=== PATIENT | female | born 1940 | race Caucasian/White ===

== ENCOUNTER 2023-06-27 13:25 | Emergency (ER) | payer MEDICARE, OTHER ==
[2023-06-27] MEDS ORDERED: Naloxone 0.4 MG/ML SDV IVPUSH PRN (13:50)
[2023-06-27 14:02] LABS: BASOPHILS ABSOLUTE AUTO 0.05 K/uL (0.00-0.10); BASOPHILS PERCENT AUTO 0.7 % (0.1-1.3); EOSINOPHILS ABSOLUTE AUTO 0.12 K/uL (0.00-0.40); EOSINOPHILS PERCENT AUTO 1.6 % (0.0-5.4); IMMATURE GRAN ABSOLUTE AUTO 0.04 K/uL (0.00-0.23); IMMATURE GRAN PERCENT AUTO 0.5 % (0.0-0.7); LYMPHOCYTES ABSOLUTE AUTO 1.31 K/uL (0.8-3.3); LYMPHOCYTES PERCENT AUTO 17.2 % (11.4-47.7); MEAN CORPUSCULAR HEMOGLOBIN 32.2 pg (31.6-35.5); MEAN CORPUSCULAR HGB CONC 34.1 g/dL (31.6-35.5); MEAN CORPUSCULAR VOLUME 94.3 fL (81.4-99.0); MONOCYTES ABSOLUTE AUTO 0.34 K/uL (0.20-0.90); MONOCYTES PERCENT AUTO 4.5 % (3.3-12.6); NEUTROPHILS ABSOLUTE AUTO 5.76 K/uL (1.0-7.6); NEUTROPHILS PERCENT AUTO 75.5 % (40.0-78.1); PLATELET COUNT,PLT 231 K/uL (130-375); RED BLOOD CELL COUNT 4.35 M/uL (3.77-5.24); WHITE BLOOD CELL COUNT,WBC 7.6 K/uL (3.2-11.0)
[2023-06-27 14:26] LABS: A/G RATIO 1.2 (1.2-2.2); ALANINE AMINOTRANSFERASE,ALT 22 U/L (12-78); ALBUMIN 4.3 g/dL (3.4-5.0); ALKALINE PHOSPHATASE 89 U/L (46-116); ASPARTATE AMNIOTRANSFERASE,AST 16 U/L (15-37); BILIRUBIN TOTAL 0.9 mg/dL (0.2-1.0); BLOOD UREA NITROGEN,BUN 30 mg/dL (7-18); CALCIUM 10.7 mg/dL (8.5-10.1); CARBON DIOXIDE,CO2 21 mmol/L (21-32); CHLORIDE,CL 102 mmol/L (100-108); CREATININE 1.3 mg/dL (0.6-1.0); EST CRCL DRUG DOSING (CG) 26.39 mL/min; ESTIMATED GFR 41 mL/min (>60); GLUCOSE RANDOM 161 mg/dL (74-106); POTASSIUM,K 5.3 mmol/L (3.6-5.2); PROTEIN TOTAL,TP 7.9 g/dL (6.4-8.2); SODIUM,NA 135 mmol/L (140-148)
[2023-06-27 14:28] LABS: ANION GAP 17.3 mmol/L (5.0-14.0)
[2023-06-27] MEDS: fentaNYL 50 MCG/ML SDV IVPUSH ONE (14:51)
[2023-06-27] MEDS: Ondansetron 4 MG/2 ML SDV IVPUSH ONE (14:51)
[2023-06-27] MEDS: Sodium Chloride 0.9% 1,000 ML IV SCH (14:52)
[2023-06-27 15:02] VITALS: BP 155/95; PULSE 97
[2023-06-27 15:10] LABS: APPEARANCE,URINE CLEAR (CLEAR); BILIRUBIN,URINE NEGATIVE (NEGATIVE); COLOR,URINE YELLOW (YELLOW); GLUCOSE,URINE NEGATIVE (NEGATIVE); KETONES,URINE NEGATIVE (NEGATIVE); LEUKOCYTE ESTERASE,URINE NEGATIVE (NEGATIVE); NITRITE,URINE NEGATIVE (NEGATIVE); OCCULT BLOOD,URINE NEGATIVE (NEGATIVE); PH,URINE 5.5 (5.0-8.0); PROTEIN,URINE NEGATIVE (NEGATIVE); UROBILINOGEN,URINE 0.2 EU/dL (0.2-1.0)
[2023-06-27 15:16] LABS: AMORPHOUS SEDIMENT,URINE NOT SEEN; BACTERIA,URINE MODERATE; EPITHELIAL CELLS,URINE FEW; MUCUS,URINE NOT SEEN; RBC,URINE NOT SEEN (0-5); WBC,URINE 0-5 (0-5)
== END 2023-06-27 16:20 | disposition home or self-care (01) ==
LOC: JP.ED 13:25
DX: I20.9 Angina pectoris, unspecified (principal); I10 Essential (primary) hypertension; I25.10 Atherosclerotic heart disease of native coronary artery without angina pectoris; E78.00 Pure hypercholesterolemia, unspecified; Z79.82 Long term (current) use of aspirin; Z79.899 Other long term (current) drug therapy
CPT/HCPCS: 36415; 74177; 80053; 81001; 83605; 83690; 84484; 85025; 96361; 96374; 96375; 99284; J2405; J3010; J7030

== ENCOUNTER 2023-06-29 16:25 | Inpatient (IN) | payer MEDICARE ==
[2023-06-29] MEDS: Ondansetron 4 MG/2 ML SDV IVPUSH ONE (17:39)
[2023-06-29] MEDS: Sodium Chloride 0.9% 1,000 ML IV SCH ×2 (17:39→22:52)
[2023-06-29 18:49] LABS: BILIRUBIN,URINE NEGATIVE (NEGATIVE); COLOR,URINE YELLOW (YELLOW); GLUCOSE,URINE NEGATIVE (NEGATIVE); KETONES,URINE NEGATIVE (NEGATIVE); LEUKOCYTE ESTERASE,URINE NEGATIVE (NEGATIVE); NITRITE,URINE NEGATIVE (NEGATIVE); OCCULT BLOOD,URINE TRACE-INTACT (NEGATIVE); PH,URINE 6.5 (5.0-8.0); PROTEIN,URINE 100 mg/dL (NEGATIVE); UROBILINOGEN,URINE 0.2 EU/dL (0.2-1.0)
[2023-06-29 18:59] LABS: AMORPHOUS SEDIMENT,URINE NOT SEEN; APPEARANCE,URINE SLIGHTLY CLOUDY (CLEAR); BACTERIA,URINE MODERATE; EPITHELIAL CELLS,URINE MODERATE; MUCUS,URINE FEW; RBC,URINE 0-5 (0-5); WBC,URINE 0-5 (0-5)
[2023-06-29] MEDS: Simethicone 125 MG Tab.Chew PO PRN (19:49)
[2023-06-29 20:37] LABS: BASOPHILS ABSOLUTE AUTO 0.03 K/uL (0.00-0.10); BASOPHILS PERCENT AUTO 0.4 % (0.1-1.3); EOSINOPHILS ABSOLUTE AUTO 0.02 K/uL (0.00-0.40); EOSINOPHILS PERCENT AUTO 0.2 % (0.0-5.4); HEMATOCRIT 36.6 % (34.3-46.0); HEMOGLOBIN 12.7 g/dL (11.2-15.5); IMMATURE GRAN ABSOLUTE AUTO 0.04 K/uL (0.00-0.23); IMMATURE GRAN PERCENT AUTO 0.5 % (0.0-0.7); LYMPHOCYTES ABSOLUTE AUTO 1.43 K/uL (0.8-3.3); LYMPHOCYTES PERCENT AUTO 16.8 % (11.4-47.7); MEAN CORPUSCULAR HEMOGLOBIN 32.2 pg (31.6-35.5); MEAN CORPUSCULAR HGB CONC 34.7 g/dL (31.6-35.5); MEAN CORPUSCULAR VOLUME 92.9 fL (81.4-99.0); MONOCYTES ABSOLUTE AUTO 0.39 K/uL (0.20-0.90); MONOCYTES PERCENT AUTO 4.6 % (3.3-12.6); NEUTROPHILS ABSOLUTE AUTO 6.61 K/uL (1.0-7.6); NEUTROPHILS PERCENT AUTO 77.5 % (40.0-78.1); PLATELET COUNT,PLT 245 K/uL (130-375); RED BLOOD CELL COUNT 3.94 M/uL (3.77-5.24); WHITE BLOOD CELL COUNT,WBC 8.5 K/uL (3.2-11.0)
[2023-06-29 20:51] LABS: A/G RATIO 1.3 (1.2-2.2); ALANINE AMINOTRANSFERASE,ALT 21 U/L (12-78); ALBUMIN 4.3 g/dL (3.4-5.0); ALKALINE PHOSPHATASE 79 U/L (46-116); AMYLASE 53 U/L (25-115); ASPARTATE AMNIOTRANSFERASE,AST 19 U/L (15-37); BLOOD UREA NITROGEN,BUN 22 mg/dL (7-18); CALCIUM 10.6 mg/dL (8.5-10.1); CARBON DIOXIDE,CO2 24 mmol/L (21-32); CHLORIDE,CL 101 mmol/L (100-108); CREATININE 1.4 mg/dL (0.6-1.0); ESTIMATED GFR 38 mL/min (>60); GLUCOSE RANDOM 172 mg/dL (74-106); MAGNESIUM 1.3 mg/dL (1.8-2.4); POTASSIUM,K 4.3 mmol/L (3.6-5.2); PROTEIN TOTAL,TP 7.6 g/dL (6.4-8.2); SODIUM,NA 136 mmol/L (140-148)
[2023-06-29 20:52] LABS: ANION GAP 15.3 mmol/L (5.0-14.0)
[2023-06-29 21:31] LABS: CORONAVIRUS COVID-19 NAA NEGATIVE (NEGATIVE); INFLUENZA A NAA NEGATIVE (NEGATIVE); INFLUENZA B NAA NEGATIVE (NEGATIVE); RESPIRATORY SYNCYTIAL VIR NAA NEGATIVE (NEGATIVE)
[2023-06-29] MEDS: Dexamethasone 4 MG/ML SDV IVPUSH ONE (21:35)
[2023-06-29] MEDS ORDERED: LORazepam 1 MG Tab PO PRN (21:54)
[2023-06-29] MEDS ORDERED: Morphine 2 MG/ML SYRINGE IVPUSH PRN (21:54)
[2023-06-29] MEDS ORDERED: Nitroglycerin 0.4 MG Tab.SL SL PRN (21:54)
[2023-06-29] MEDS ORDERED: Ondansetron 4 MG Tab.DIS PO PRN (21:54)
[2023-06-29] MEDS ORDERED: Naloxone 0.4 MG/ML SDV IVPUSH PRN (21:54)
[2023-06-29] MEDS: cefTRIAXone 1 GM in Sodium Chloride 0.9% 50 ML IV SCH (22:33)
[2023-06-29] MEDS: Enoxaparin 30 MG/0.3 ML Syringe SUBCUT SCH (22:37)
[2023-06-29] MEDS: DULoxetine 20 MG Cap PO SCH (22:38)
[2023-06-29] MEDS: Isosorbide Mononitrate 30 MG Tab.ER PO SCH (22:39)
[2023-06-29] MEDS: Magnesium Oxide 400 MG Tab PO SCH (22:40)
[2023-06-29] MEDS: atorvaSTATin 20 MG Tab PO SCH (22:40)
[2023-06-29] MEDS: Lisinopril 10 MG Tab PO SCH (22:40)
[2023-06-29] MEDS: Gabapentin 300 MG Cap PO SCH (22:40)
[2023-06-29] MEDS: Pantoprazole 40 MG Tab.CR PO SCH (22:41)
[2023-06-29] MEDS: Metoprolol Succinate 50 MG Tab.ER PO SCH (22:42)
[2023-06-29] MEDS: Spironolactone 25 MG Tab PO SCH (22:45)
[2023-06-29] MEDS: oxyCODONE 5 MG Tab PO PRN (23:44)
[2023-06-29] MEDS: Ondansetron 4 MG Tab.DIS PO PRN (23:45)
[2023-06-30 02:09] LABS: BASOPHILS PERCENT AUTO 0.1 % (0.1-1.3); EOSINOPHILS PERCENT AUTO 0.1 % (0.0-5.4); HEMATOCRIT 33.8 % (34.3-46.0); HEMOGLOBIN 11.6 g/dL (11.2-15.5); IMMATURE GRAN ABSOLUTE AUTO 0.04 K/uL (0.00-0.23); IMMATURE GRAN PERCENT AUTO 0.4 % (0.0-0.7); LYMPHOCYTES ABSOLUTE AUTO 1.17 K/uL (0.8-3.3); LYMPHOCYTES PERCENT AUTO 12.2 % (11.4-47.7); MEAN CORPUSCULAR HEMOGLOBIN 32.5 pg (31.6-35.5); MEAN CORPUSCULAR HGB CONC 34.3 g/dL (31.6-35.5); MEAN CORPUSCULAR VOLUME 94.7 fL (81.4-99.0); MONOCYTES ABSOLUTE AUTO 0.12 K/uL (0.20-0.90); MONOCYTES PERCENT AUTO 1.2 % (3.3-12.6); NEUTROPHILS ABSOLUTE AUTO 8.26 K/uL (1.0-7.6); PLATELET COUNT,PLT 203 K/uL (130-375); RED BLOOD CELL COUNT 3.57 M/uL (3.77-5.24); WHITE BLOOD CELL COUNT,WBC 9.6 K/uL (3.2-11.0)
[2023-06-30 02:12] LABS: BASOPHILS ABSOLUTE AUTO 0.01 K/uL (0.00-0.10); EOSINOPHILS ABSOLUTE AUTO 0.01 K/uL (0.00-0.40)
[2023-06-30 02:25] LABS: ANION GAP 12.3 mmol/L (5.0-14.0); CALCIUM 9.5 mg/dL (8.5-10.1); CREATININE 1.5 mg/dL (0.6-1.0); EST CRCL DRUG DOSING (CG) 22.87 mL/min; POTASSIUM,K 4.7 mmol/L (3.6-5.2)
[2023-06-30] MEDS: Pantoprazole 40 MG Tab.CR PO SCH (08:23)
[2023-06-30] MEDS: Ascorbic Acid 500 MG Tab PO SCH (08:23)
[2023-06-30] MEDS: Allopurinol 100 MG Tab PO SCH (08:24)
[2023-06-30] MEDS: Cyanocobalamin (Vitamin B12) 1,000 MCG Tab PO SCH (08:24)
[2023-06-30] MEDS: Metoprolol Succinate 25 MG Tab.ER PO SCH (08:25)
[2023-06-30] MEDS: Cholecalciferol (Vitamin D3) 25 MCG Tab PO SCH (08:25)
[2023-06-30] MEDS: Insulin Lispro 100 Unit/ML 3 ML KwikPen SUBCUT SCH (08:30)
[2023-06-30] MEDS: Gabapentin 300 MG Cap PO SCH (09:59)
[2023-06-30] MEDS: Sodium Chloride 0.9% 1,000 ML IV SCH (13:00)
[2023-06-30] MEDS: Enoxaparin 30 MG/0.3 ML Syringe SUBCUT SCH (21:15)
[2023-07-01] MEDS: Acetaminophen 500 MG Tab PO PRN (18:52)
[2023-07-02 11:23] VITALS: BP 122/82; PULSE 82
== END 2023-07-02 12:50 | disposition home or self-care (01) | DRG 392 ==
LOC: JP.ED 16:25 → JP.MS 21:18
PROVIDERS: ADMIT Internal Medicine; ATTEND Hospitalist
DX: A08.4 Viral intestinal infection, unspecified (principal); R10.84 Generalized abdominal pain; K57.92 Diverticulitis of intestine, part unspecified, without perforation or abscess without bleeding; H54.7 Unspecified visual loss; I25.10 Atherosclerotic heart disease of native coronary artery without angina pectoris; E78.00 Pure hypercholesterolemia, unspecified; I10 Essential (primary) hypertension; K21.9 Gastro-esophageal reflux disease without esophagitis; M54.9 Dorsalgia, unspecified; G89.29 Other chronic pain; M10.9 Gout, unspecified; G43.909 Migraine, unspecified, not intractable, without status migrainosus; F41.9 Anxiety disorder, unspecified; E11.9 Type 2 diabetes mellitus without complications; Z96.659 Presence of unspecified artificial knee joint; E89.0 Postprocedural hypothyroidism; I11.9 Hypertensive heart disease without heart failure; I25.2 Old myocardial infarction; Z79.899 Other long term (current) drug therapy; Z79.82 Long term (current) use of aspirin; Z85.118 Personal history of other malignant neoplasm of bronchus and lung; Z95.5 Presence of coronary angioplasty implant and graft; Z90.49 Acquired absence of other specified parts of digestive tract; Z90.2 Acquired absence of lung [part of]
CPT/HCPCS: 0241U; 36415; 74019; 74019-26; 80048; 80053; 81001; 82150; 82947; 83605; 83690; 83735; 84145; 85025; 87040; 87086; 96361; 96374; 99285-25; A9270-GY; J0696; J1100; J1650; J1815; J2405; J3490; J7030; Q0162